=== PATIENT | female | born 1940 | race Caucasian/White ===

== ENCOUNTER 2016-05-25 10:03 | Day surgery (SDC) | payer MEDICARE, OTHER ==
[~2016-05-25] VITALS: Ht 157.5 cm; Wt 81.8 kg
[2016-05-25] VITALS (8 sets, daily range): BP systolic 115–155; BP diastolic 59–89; Ht 157.5 cm; Wt 81.8 kg
[~2016-05-25 10:03] MED LIST: ADVAIR 250/501 DISK INH; HALCION0.25 MG PO; SINGULAIR10 MG PO; VITAMIN D250000 UNIT PO; ZYRTEC10 MG PO
[2016-05-25 11:59] LABS: HEMATOCRIT 38.6 % (36.0-48.0); HEMOGLOBIN 12.4 g/dL (12-16); MCH 30.9 pg (26.0-34.0); MCHC 32.1 g/dL (31.0-37.0); MCV 96.3 fL (80.0-100.0); MEAN PLATELET VOLUME 10.2 fL (7.4-10.4); RBC 4.01 10x6/uL (4.00-5.40); RDW 13.7 % (11.5-14.5)
--- NOTE | 2016-05-25 14:08 | NUR ---
PATIENTS ARM TO SIDE WITH DRAW SHEET PULLED AND WRAPPED UP AROUND ARMS, JL LOWRY.
--- NOTE | 2016-05-25 14:57 | HP ---
PATIENT: MICHELE MCKEON MEDICAL RECORD: [id number] ACCOUNT: [id number] LOCATION:[id number] : 40 ADMISSION DATE: 05/25/16 HISTORY AND PHYSICAL EXAMINATION HISTORY OF PRESENT ILLNESS: A 76-year-old female with a left-sided parotid mass, needle biopsy suggested a Warthin's tumor. She is being admitted for left superficial parotidectomy. PAST MEDICAL HISTORY: Includes reflux. PAST SURGICAL HISTORY: Includes hysterectomy, kidney stone, bilateral knee replacement, and eye surgery. CURRENT MEDICATIONS: Include vitamin D, meloxicam, triazolam, and Advair. ALLERGIES: PENICILLIN. PHYSICAL EXAMINATION: GENERAL: She is healthy-appearing female. FACE: Normal and symmetric. EYES: Sclerae and conjunctivae are normal. EARS: Canals and TMs are normal. NOSE: No masses, polyps, or drainage. ORAL CAVITY AND OROPHARYNX: No trismus. Tongue protrudes in midline. NECK: She has a 2.5 cm mass in the inferior edge of the parotid on the left side. CHEST: Clear. CARDIOVASCULAR: Regular rate and rhythm, no murmur. EXTREMITIES: Normal. IMPRESSION: Left parotid mass. PLAN: Left superficial parotidectomy. She is going to stay for 23 hours observation. TRANSINT:[id number] Voice Confirmation ID: [id number] DOCUMENT ID: [id number] FRED CROWDER MD at 1457 CC: [id number] DICTATION DATE: 05/21/16 1544 EMERGENCY MEDICAL SERVICE COORDINATOR: 05/21/16 1654 REG [facility] [address] [place] [address]
--- NOTE | 2016-05-25 15:30 | NUR ---
RECEIVED TO ROOM 2203 FROM RECOVERY VIA BED AT THIS TIME. PT IS LETHARGIC, BUT ORIENTED X4. SON AT BEDSIDE. VITAL SIGNS INITIATED PER PROTOCOL. BED IN LOW POSITION AND LOCKED WITH SRX2. ORIENTED PT TO ROOM AND CALL LIGHT, WHICH IS IN REACH. PROVIDED PT WITH ORANGE JELLO AND ICE WATER. IV TO RIGHT FOREARM PATENT. MANDO DRAIN TO LEFT NECK PATENT WITH BULB COMPRESSED. ICE PACK TO LEFT NECK. DENIES PAIN. WILL CONTINUE WITH PLAN OF CARE.
--- NOTE | 2016-05-25 19:15 | NUR ---
RECIEVED SHIFT REPORT. PT IS LYING IN BED. ALERT AND ORIENTED AND ABLE TO VERBALIZE NEEDS. IV IS PATENT AND SALINE LOC AT THIS TIME. O2 @ 2 PER NASAL CANNULA. MANDO DRAIN TO LEFT NECK INTACT AND COMPRESSED WITH BLOODY DRAINAGE NOTED. PT IS AMBULATORY WITH ASSISTANCE. PT STATES PAIN IS 1/10. NO NEEDS AER VERBALIZED AT THIS TIME. WILL CONTINUE TO MONITOR. SIDE RAILS ARE UP X 2. BED IS IN LOWEST POSITION. CALL LIGHT IS WITHIN REACH.
--- NOTE | 2016-05-25 20:30 | NUR ---
SHIFT ASSESSMENT COMPLETED. PT STATUS REMAINS UNCHANGED FROM PREVIOUS. NO NEEDS ARE VOICED. WILL MONITOR. SIDE RAILS X 2. BED LOW. CALL LIGHT IN REACH.
[2016-05-26 01:48] VITALS: BP 131/75
[2016-05-26 04:41] VITALS: BP 132/58
--- NOTE | 2016-05-26 07:29 | NUR ---
AWAKE AND ALERT. ORIENTED X3. C/O SOME PAIN TO NECK AND HEAD. GIVEN 650MG TYLENOL PER CRTTS. WILL MONITOR. LUNGS ARE CLEAR BILATERALLY, OCCASSIONAL NON PRODUCTIVE COUGH NOTED. SKIN IS INTACT WITHOUT REDNESS EXCEPT INCISION TO LEFT NECK. MANDO TO AREA PATENT WITH SEROUS SANGUINESS DISCHARGE. DENIES NEEDS. SL TO RIGHT FOREARM PATNET WITHOUT REDNESS AT INSERTION SITE.
--- NOTE | 2016-05-26 08:29 | OP ---
PATIENT NAME: MICHELE MCKEON MEDICAL RECORD: [id number] :40 LOCATION:[id number] ADMISSION DATE: SURGEON: ANGEL LUIS CROWDER MD DATE OF OPERATION: 05/25/2016 PREOPERATIVE DIAGNOSIS: Left parotid mass. POSTOPERATIVE DIAGNOSIS: Left parotid mass. PROCEDURE: Left superficial parotidectomy. SURGEON: Angel Luis Crowder MD ANESTHESIA: General orotracheal. BLOOD LOSS: Less than 5 cc. SPECIMENS: Left parotid mass. COMPLICATIONS: None. DRAINS: A single MANDO. DISPOSITION: Recovery, stable. DESCRIPTION OF PROCEDURE: She is brought to the operating room and placed in supine position, sedated and intubated by anesthesia. The eyes were taped. Head was turned to the right. The skin along the incision line was cleaned with alcohol and injected with a total of less than 1 cc of 1% lidocaine with ____ epinephrine. The left face was prepped and draped in the usual sterile fashion exposing the left eye and the left corner of the mouth. A left parotidectomy incision was made with a 15 blade. This was taken down to the parotid fascia superiorly and down to the sternocleidomastoid inferiorly. Double prong skin hooks were used to elevate the flaps anteriorly with a curved Metzenbaum scissors. Once the flap was elevated, silk stick ties were used 2 anteriorly and one on the earlobe for retraction sutures. Gland was dissected away from the tragal cartilage superiorly and dissected right down on to the sternocleidomastoid inferiorly and retracted anteriorly and taken down small vessels with a tonsil clamp and bipolar cautery. A couple of vessels were tied with 3-0 silk ties. The facial nerve was identified, followed anteriorly and inferiorly along the marginal branch with a tonsil clamp. The mass was clearly visible 2-3 cm inside the tail of the parotid following the marginal branch to the gland, easily dissected that off with the margin inferiorly. This was followed anteriorly through the gland. Some branches of the posterior facial vein were tied off with silk ties as well and the entire tail of the parotid was dissected out and sent for specimen. All the retraction sutures were divided. The wound was irrigated with warm saline and cleaned up any oozing was controlled with bipolar cautery. With the wound completely clean and dry, a MANDO drain was placed through a separate stab incision inferior to the wound. The skin was closed with interrupted subcutaneous 4-0 Vicryl and then the skin was closed with multiple interrupted running 5-0 Prolene. Ointment was applied. She was awakened, extubated, and transported to recovery in good condition. Facial function was perfectly normal. Flap was clean, dry and intact and flat, she was doing well. Counts were correct. OPERATIVE REPORT [id number] MICHELE MCKEON TRANSINT:[id number] Voice Confirmation ID: [id number] DOCUMENT ID: [id number] ANGEL LUIS CROWDER MD at 0829 CC: [id number] DICTATION DATE: 05/25/16 1533 SHAKE TABLE OPERATOR: 05/25/16 1555 [facility] [address] [place] [address]
[2016-05-26] MEDS ORDERED: KEFLEX250 MG PO (08:47)
[2016-05-26 08:57] VITALS: BP 133/63
--- NOTE | 2016-05-26 09:15 | NUR ---
DR. CROWDER HERE. D/C MANDO DRAIN WITHOUT DIFFICULTY. DISCHARGE ORDERS RECEIVED.
--- NOTE | 2016-05-26 09:45 | NUR ---
DISCHARGED TO HOME AMBULATORY WITH SON. DISCHARGE INSTRUCTIONS GIVEN BOTH VERBALLY AND WRITTEN. ALL QUESTIONS ANSWERED. PATIENT VERBALIZED UNDERSTANDING OF SAME. NEEDED PRESCRIPTIONS GIVEN TO MANOHAR. SL TO RIGHT HAND D/C WITH CATHETER INTACT.
== END 2016-05-26 14:03 | disposition home or self-care (01) ==
LOC: D.OPS 10:03 → D.PAN 12:10 → D.OPS 12:45 → D.PAN 13:05 → D.MS 13:27 → D.OPS 05-26 14:03
PROVIDERS: Anesthesiology
DX: D11.0 Benign neoplasm of parotid gland (principal); K21.9 Gastro-esophageal reflux disease without esophagitis; Z96.653 Presence of artificial knee joint, bilateral; Z79.1 Long term (current) use of non-steroidal anti-inflammatories (NSAID); Z79.899 Other long term (current) drug therapy; Z88.0 Allergy status to penicillin